=== PATIENT | female | born 1980 | race African-American/Black ===

== ENCOUNTER 2019-12-24 11:58 | Emergency (ER) | payer OTHER, SELFPAY ==
--- NOTE | 2019-12-24 12:43 | EDPHYS ---
Physician Documentation [facility] Name: Vick Crum Age: 39 yrs Sex: Female : 1980 Arrival Date: 12/24/2019 Time: 11:59 Bed 20 Private MD: ED Physician Siddharth Lama HPI: 12/23 12:38 This 39 yrs old Black Female presents to ER via Ambulatory with complaints of Back Pain.rn 12:38 The patient presents with pain that is acute, with no known mechanism of injury. The rn symptoms are located in the low back. 12:39 Onset: The symptoms/episode began/occurred yesterday. The pain does not radiate. rn Associated signs and symptoms: Pertinent positives: none Pertinent negatives: abdominal pain, chest pain, constipation, dysuria, fever, headache, hematuria, incontinence, nausea, numbness, tingling, urinary retention, vomiting, weakness. Modifying factors: The patient symptoms are alleviated by heat application, rest, the patient symptoms are aggravated by any movement, bending. Severity of symptoms: At their worst the symptoms were moderate, in the emergency department the symptoms have improved. The patient has not experienced similar symptoms in the past. The patient has not recently seen a physician. Historical: - Allergies: 12:07 No Known Allergies; iw - Home Meds: 12:06 None [Active]; iw - PMHx: 12:06 None; iw - PSHx: 12:06 None; iw - Immunization history:: Adult Immunizations not up to date. - Social history:: Smoking status: Patient reports the use of cigarette tobacco products, smokes one-half pack cigarettes per day. - Family history:: not pertinent. - Hospitalizations: : No recent hospitalization is reported. ROS: 12:39 Constitutional: Negative for fever, chills, and weight loss, Eyes: Negative for injury, rn pain, redness, and discharge, Cardiovascular: Negative for chest pain, palpitations, and edema, Respiratory: Negative for shortness of breath, cough, wheezing, and pleuritic chest pain, Abdomen/GI: Negative for abdominal pain, nausea, vomiting, diarrhea, and constipation, Back: + low back pain MS/Extremity: Negative for injury and deformity, Skin: Negative for injury, rash, and discoloration, Neuro: Negative for headache, weakness, numbness, tingling, and seizure. Exam: 12:39 Constitutional: This is a well developed, well nourished patient who is awake, alert, rn and in no acute distress. Head/Face: Normocephalic, atraumatic. Cardiovascular: Regular rate and rhythm. No pulse deficits. Respiratory: No increased work of breathing, no retractions or nasal flaring. Abdomen/GI: Soft, non-tender Back: No spinal tenderness. + focal muscular tenderness right mid back/flank. No CVAT. MS/ Extremity: Pulses equal, no cyanosis. Neurovascular intact. Full, normal range of motion. Equal circumference. Neuro: Awake and alert, GCS 15, oriented to person, place, time, and situation. Cranial nerves II-XII grossly intact. Motor strength 5/5 in all extremities. Sensory grossly intact. Cerebellar exam normal. Normal gait. Vital Signs: 12:04 BP 138 / 79; Pulse 88; Resp 16; Pulse Ox 100% on R/A; Weight 167.83 kg; Height 5 ft. 9 iw in. (175.26 cm); Pain 8/10; 12:22 BP 150 / 91; Pulse 104; Resp 20; Temp 98.2; Pulse Ox 100% ; bp 13:17 BP 147 / 81; Pulse 95; Resp 20; Temp 98.2; Pulse Ox 100% ; bp 12:04 Body Mass Index 54.64 (167.83 kg, 175.26 cm) iw MDM: 12:19 Patient medically screened. rn 12:39 Differential diagnosis: muscle spasm of back, disc problem. Data reviewed: vital signs, rn nurses notes, and as a result, I will discharge patient. Counseling: I had a detailed discussion with the patient and/or guardian regarding: the historical points, exam findings, and any diagnostic results supporting the discharge/admit diagnosis, the need for outpatient follow up, to return to the emergency department if symptoms worsen or persist or if there are any questions or concerns that arise at home. Special discussion: I discussed with the patient/guardian in detail that at this point there is no indication for admission to the hospital. It is understood, however, that if the symptoms persist or worsen the patient needs to return immediately for re-evaluation. Administered Medications: 12:50 Drug: Flexeril 10 mg Route: PO; bp 13:17 Follow up: Response: No adverse reaction bp 12:50 Drug: predniSONE 60 mg Route: PO; bp 13:17 Follow up: Response: No adverse reaction bp 12:50 Drug: [place] 5 mg-325 mg 1 tabs Route: PO; bp 13:16 Follow up: Response: No adverse reaction bp Disposition: 12/24/19 12:42 Discharged to Home. Impression: Low back pain, Muscle spasm of back. - Condition is Stable. - Discharge Instructions: Back Pain, Adult, Muscle Cramps and Spasms. - Prescriptions for Cyclobenzaprine 10 mg Oral Tablet - take 1 tablet by ORAL route every 8 hours As needed; 15 tablet. Medrol ([place]) 4 mg Oral Tablets, Dose Pack - take 1 tablet by ORAL route as directed - follow package instructions; 1 packet. - Medication Reconciliation Form, Thank You Letter, Antibiotic Education, Prescription Opioid Use form. - Follow up: Private Physician; When: As needed; Reason: Recheck today's complaints, Re-evaluation by your physician. - Problem is new. - Symptoms have improved. Signatures: Parisa Welch RN RN Siddharth Lama MD MD rn Peltier, Brian, RN RN bp Corrections: (The following items were deleted from the chart) 13:18 12:42 12/24/2019 12:42 Discharged to Home. Impression: Low back pain; Muscle spasm of bp back. Condition is Stable. Forms are Medication Reconciliation Form, Thank You Letter, Antibiotic Education, Prescription Opioid Use. Follow up: Private Physician; When: As needed; Reason: Recheck today's complaints, Re-evaluation by your physician. Problem is new. Symptoms have improved. rn
--- NOTE | 2019-12-24 12:43 | ER ---
Nurse's Notes [facility] Name: Vick Crum Age: 39 yrs Sex: Female : 1980 Arrival Date: 12/24/2019 Time: 11:59 Bed 20 Private MD: Diagnosis: Low back pain;Muscle spasm of back Presentation: 12/23 12:04 Chief complaint: Patient states: mid right sided back pain radiates to low back since iw yesterday, constant, unknown injury, pain increases when she takes a deep breath or raises her arm. Coronavirus screen: At this time, the client does not indicate any symptoms associated with coronavirus-19. Ebola Screen: Patient negative for fever greater than or equal to 101.5 degrees Fahrenheit, and additional compatible Ebola Virus Disease symptoms Patient denies exposure to infectious person. Patient denies travel to an Ebola-affected area in the 21 days before illness onset. No symptoms or risks identified at this time. Initial Sepsis Screen: Does the patient meet any 2 criteria? No. Patient's initial sepsis screen is negative. Does the patient have a suspected source of infection? No. Patient's initial sepsis screen is negative. Risk Assessment: Do you want to hurt yourself or someone else? Patient reports no desire to harm self or others. Onset of symptoms was December 23, 2019. 12:04 Method Of Arrival: Ambulatory iw 12:04 Acuity: YOGESH 3 iw Triage Assessment: 12:07 General: Appears in no apparent distress. uncomfortable, Behavior is cooperative, bp appropriate for age, anxious. Pain: Complains of pain in back. EENT: No deficits noted. Neuro: No deficits noted. Cardiovascular: No deficits noted. Respiratory: No deficits noted. GI: No signs and/or symptoms were reported involving the gastrointestinal system. : No signs and/or symptoms were reported regarding the genitourinary system. Derm: No deficits noted. Musculoskeletal: Circulation, motion, and sensation intact. Range of motion: Reports pain in back. Historical: - Allergies: 12:07 No Known Allergies; iw - Home Meds: 12:06 None [Active]; iw - PMHx: 12:06 None; iw - PSHx: 12:06 None; iw - Immunization history:: Adult Immunizations not up to date. - Social history:: Smoking status: Patient reports the use of cigarette tobacco products, smokes one-half pack cigarettes per day. - Family history:: not pertinent. - Hospitalizations: : No recent hospitalization is reported. Screenin:21 Abuse screen: Denies threats or abuse. Denies injuries from another. Nutritional bp screening: No deficits noted. Tuberculosis screening: No symptoms or risk factors identified. Fall Risk None identified. No secondary diagnosis (0 pts). No IV (0 pts). Assessment: 12:07 General: SEE TRIAGE NOTE. Neuro: Level of Consciousness is awake, alert, obeys bp commands, Oriented to person, place, time, situation, Appropriate for age. Cardiovascular: No deficits noted. Respiratory: No deficits noted. GI: No deficits noted. : No signs and/or symptoms were reported regarding the genitourinary system. EENT: No signs and/or symptoms were reported regarding the EENT system. Derm: No deficits noted. 13:17 Reassessment: PT D/C HOME AMBULATORY, DX WITH BACK PAIN. bp Vital Signs: 12:04 BP 138 / 79; Pulse 88; Resp 16; Pulse Ox 100% on R/A; Weight 167.83 kg; Height 5 ft. 9 iw in. (175.26 cm); Pain 8/10; 12:22 BP 150 / 91; Pulse 104; Resp 20; Temp 98.2; Pulse Ox 100% ; bp 13:17 BP 147 / 81; Pulse 95; Resp 20; Temp 98.2; Pulse Ox 100% ; bp 12:04 Body Mass Index 54.64 (167.83 kg, 175.26 cm) iw ED Course: 11:59 Patient arrived in ED. ag5 12:06 Triage completed. iw 12:07 Arm band placed on. iw 12:15 Usman Campos, RN is Primary Nurse. bp 12:19 Siddharth Lama MD is Attending Physician. rn 12:21 Patient has correct armband on for positive identification. Bed in low position. Call bp light in reach. Side rails up X2. 13:17 No provider procedures requiring assistance completed. Patient did not have IV access bp during this emergency room visit. Administered Medications: 12:50 Drug: Flexeril 10 mg Route: PO; bp 13:17 Follow up: Response: No adverse reaction bp 12:50 Drug: predniSONE 60 mg Route: PO; bp 13:17 Follow up: Response: No adverse reaction bp 12:50 Drug: [place] 5 mg-325 mg 1 tabs Route: PO; bp 13:16 Follow up: Response: No adverse reaction bp Outcome: 12:42 Discharge ordered by . rn 13:17 Discharged to home ambulatory. bp 13:17 Condition: stable 13:17 Discharge instructions given to patient, Instructed on discharge instructions, follow up and referral plans. medication usage, Demonstrated understanding of instructions, follow-up care, medications, Prescriptions given X 2. 13:18 Patient left the ED. bp Signatures: Parisa Welhc, RN iSddharth Ibanez MD MD rn Peltier, Brian, RN RN bp Gaskin, Ajare ag5
[2019-12-24] MEDS ORDERED: CYCLOBENZAPRINE 10 MG TAB ONE (13:18)
[2019-12-24] MEDS ORDERED: HYDROCODONE/APAP 5/325 MG TAB ONE (13:18)
[2019-12-24] MEDS ORDERED: predniSONE 20 MG TAB ONE (13:19)
[2019-12-24 13:28] VITALS: O2SAT 100
[2019-12-24 13:29] VITALS: TEMP 98.2
[2019-12-24 13:31] VITALS: BP 147/81
== END 2019-12-24 13:18 | disposition home or self-care (01) ==
LOC: ER 11:58
DX: M62.830 Muscle spasm of back (principal); F17.210 Nicotine dependence, cigarettes, uncomplicated
CPT/HCPCS: 99283; J7512